=== PATIENT | female | born 1985 | race Caucasian/White ===

== ENCOUNTER 2023-08-02 16:43 | Emergency (ER) | payer MEDICAID, OTHER ==
[~2023-08-02] VITALS: Ht 152.4 cm; Wt 95.0 kg
[2023-08-02 17:02] VITALS: BP 151/86; PULSE 110; RESP 16; O2SAT 99
[2023-08-02] MEDS ORDERED: TOPUD PO (17:41)
[2023-08-02] MEDS ORDERED: IBUP-2028 MT (17:41)
== END 2023-08-02 17:56 | disposition home or self-care (01) ==
LOC: ER 16:43
DX: Z00.00 Encounter for general adult medical examination without abnormal findings (principal); M54.9 Dorsalgia, unspecified; I10 Essential (primary) hypertension; V49.9XXA Car occupant (driver) (passenger) injured in unspecified traffic accident, initial encounter; Y93.89 Activity, other specified; Y92.89 Other specified places as the place of occurrence of the external cause; Y99.8 Other external cause status
CPT/HCPCS: 99282